=== PATIENT | female | born 1970 | race Hispanic/Latino ===

== ENCOUNTER 2018-03-06 18:25 | Inpatient (IN) | payer MEDICAID ==
[2018-03-06 18:25] VITALS: BMI 24.4
--- NOTE | 2018-03-06 19:36 | C.PDOC ---
History Of Present Illness 47 year old female presents to the ER for detox from benzos and opiates. Patient states she uses Xanax and snorts Heroin, last use was this morning. Patient denies any physical complaints at this time. Time Seen by Provider: 03/06/18 19:09 Chief Complaint (Nursing): Substance Abuse History Per: Patient History/Exam Limitations: no limitations Onset/Duration Of Symptoms: Persistent Modifying Factor(s): Other (Opiates, Benzos) Involuntary Hold By: None Recent travel outside of the [place]: No Past Medical History Reviewed: Historical Data, Nursing Documentation, Vital Signs Vital Signs: Last Vital Signs Temp 97.8 F 03/06/18 18:28 Pulse 96 H 03/06/18 18:28 Resp 16 03/06/18 18:28 BP 118/82 03/06/18 18:28 Pulse Ox 98 03/06/18 18:28 - Medical History PMH: No Chronic Diseases, Seizures - [facility] Procedures APPLICATION OF SPLINT (09/06/03) INJECT/INFUSE NEC (02/15/06) Family History: States: No Known Family Hx - Social History Hx Tobacco Use: Yes Hx Alcohol Use: No Hx Substance Use: Yes Review Of Systems Cardiovascular: Negative for: Chest Pain, Palpitations Respiratory: Negative for: Shortness of Breath Gastrointestinal: Negative for: Nausea, Vomiting, Abdominal Pain Neurological: Negative for: Headache, Dizziness Psych: Positive for: Other (benzo and heroin dependence) Physical Exam - Physical Exam Appears: Well, Non-toxic, No Acute Distress Skin: Normal Color, Warm, Dry Head: Atraumatic, Normacephalic Eye(s): bilateral: Normal Inspection Oral Mucosa: Moist Cardiovascular: Rhythm Regular Respiratory: Normal Breath Sounds, No Rales, No Rhonchi, No Wheezing Gastrointestinal/Abdominal: Normal Exam, Bowel Sounds, Soft, No Tenderness Neurological/Psych: Oriented x3 Gait: Steady ED Course And Treatment - Laboratory Results Result Diagrams: 03/06/18 20:09 03/06/18 20:09 O2 Sat by Pulse Oximetry: 98 (Room air) Pulse Ox Interpretation: Normal Progress Note: Blood work, UA, UDS, UPREG ordered and reviewed. 8:53pm- Patient medically cleared, pending crisis. 9:04pm- Patient accepted for detox admission by Dr. Cardoza. Disposition - Disposition Disposition: HOSPITALIZED Disposition Time: 21:04 Condition: STABLE - Clinical Impression Clinical Impression: Heroin dependence, Benzodiazepine dependence - Scribe Statement The provider has reviewed the documentation as recorded by the Scribsole Escobedo All medical record entries made by the Scribe were at my direction and personally dictated by me. I have reviewed the chart and agree that the record accurately reflects my personal performance of the history, physical exam, medical decision making, and the department course for this patient. I have also personally directed, reviewed, and agree with the discharge instructions and disposition. Decision To Admit - Pt Status Changed To: Hospital Disposition Of: Inpatient - Admit Certification Admit to Inpatient:: After my assessment, the patient will require hospitalization for at least two midnights. This is because of the severity of symptoms shown, intensity of services needed, and/or the medical risk in this patient being treated as an outpatient. - InPatient: Physician Admission Certification: I certify that this patient requires 2 or more midnights of care for the following reason:: see notes - . Bed Request Type: Detox Admitting Physician: Pan Cardoza Patient Diagnosis: Benzodiazepine dependence, Heroin dependence
[2018-03-06 20:17] LABS: BASO % 0.5 % (0.0-2.0); EOS # 0.1 K/uL (0.0-0.7); EOS % 1.4 % (0.0-4.0); HEMOGLOBIN 14.6 g/dL (11.0-16.0); LYMPH # 1.1 K/uL (1.0-4.3); LYMPH % 13.9 % (20.0-40.0); MEAN CELL VOLUME 82.6 fL (81.0-99.0); MEAN CORPUSCULAR HEMOGLOBIN 27.6 pg (27.0-31.0); MEAN CORPUSCULAR HGB CONC 33.4 g/dL (33.0-37.0); MONO # 0.3 K/uL (0.0-0.8); MONO % 3.1 % (0.0-10.0); NEUT # 6.6 K/uL (1.8-7.0); NEUT % 81.1 % (50.0-75.0); RBC 5.29 Mil/uL (3.80-5.20); RED CELL DISTRIBUTION WIDTH 14.8 % (11.5-14.5); WHITE BLOOD COUNT 8.1 K/uL (4.8-10.8)
[2018-03-06 20:21] LABS: HCG,QUALITATIVE URINE NEGATIVE (NEGATIVE)
[2018-03-06 20:24] LABS: ALB/GLOB RATIO 1.4 (1.0-2.1); ALBUMIN 4.4 g/dL (3.5-5.0); ALT/SGPT 13 U/L (9-52); AST/SGOT 19 U/L (14-36); BLOOD UREA NITROGEN 9 mg/dL (7-17); CALCIUM 9.1 mg/dl (8.6-10.4); GFR NON-AFRICAN AMERICAN > 60
[2018-03-06 20:28] LABS: SQUAMOUS EPITHIAL 3 /hpf (0-5); URINE BACTERIA RARE (<OCC); URINE BILIRUBIN NEGATIVE (NEGATIVE); URINE BLOOD NEGATIVE (NEGATIVE); URINE CLARITY Clear (Clear); URINE COLOR Yellow (YELLOW); URINE GLUCOSE (UA) NORMAL (Normal); URINE LEUKOCYTE ESTERASE NEG Leu/uL (Negative); URINE PROTEIN NEGATIVE (NEGATIVE)
[2018-03-06 20:37] LABS: BARBITURATES, UR NEGATIVE (NEGATIVE); PHENCYCLIDINE, UR NEGATIVE (NEGATIVE)
[2018-03-06 20:51] LABS: BENZODIAZEPINES, UR POSITIVE (NEGATIVE); OPIATES, UR POSITIVE (NEGATIVE)
--- NOTE | 2018-03-06 22:03 | PCM.BM ---
<Katharina Lundberg - Last Filed: 03/06/18 22:01> Treatment Plan Problems - Problems identified on initial assessmt Defensive Coping Date Initiated: 03/06/18 Time Initiated: 22:02 Assessment reference: NA Status: Active Hopelessness Date Initiated: 03/06/18 Time Initiated: 22:02 Assessment reference: NA Status: Active Knowledge Deficit: Substance Use Date Initiated: 03/06/18 Time Initiated: 22:02 Assessment reference: NA Status: Active Treatment assets and liabiliti Patient Assests: ADL independent, negotiates basic needs, cognitively intact Patient Liabilities: substance abuse (heroin) - Milieu Protocol Maintain good personal hygiene: daily Encourage regular showers, daily Remind pa tient to perform daily oral care, daily Assist patient to perform ADL's Conduct patient checks and document Observation sheet: Q15 minutes Maintain personal safety: every shift Educate patient to report safety concerns to staff, every shift Monitor environment for contraband/sharps Medication safety: Monitor for expected outcome, potential side effects: every shift, Assess barriers to learning: every shift, Assess readiness for medication education: every shift <Mer Dumont - Last Filed: 03/07/18 12:26> - Diagnosis (1) Opioid use disorder, severe, dependence Status: Acute Interventions: 03/07/18 12:26 * Assess 7x/week regarding severity of withdrawal * Educate regarding risks, benefits, side effects and alternatives of medications * Use Motivational Interviewing for abstinence * Use CBT for relapse prevention * Medication management for withdrawal symptoms * Encourage medication assisted treatment * <Marilee Muse - Last Filed: 03/07/18 14:48> Family Contact Family contact name: daughters Family contacted how many times per week?: 3 - Goals for Treatment Patient goals for treatment: Complete detox and transition to grief therapy. Discharge/Continuing Care - Education Needs Education Needs: Family Medication, Family Diagnosis/Disease Process, Family Coping Skills, Family Placement options, Family Community resources, Patient Medication, Patient Diagnosis/Disease Process, Patient Coping Skills, Patient Anger Management skills, Patient Placement options, Patient Community resources - Discharge Discharge Criteria: Ability to care for self, No longer exhibiting s/s of withdrawal, Reduction of target symptoms Discharge to:: Home, With Family - Treatment Team Participation Patient/Family/SO Statement: 03/07/18 14:48 "I need to go to grief therapy and I wanna take my 2 daughters too..." Discussed with Family/SO: No Was Patient/Family/SO present at Treatment Team Meeting: Yes
[2018-03-06] MEDS ORDERED: Magnesium Hydroxide Susp 30 ml UD PO PRN (22:59)
[2018-03-06] MEDS ORDERED: Aluminum Hydroxide/Magnesium Hydroxide Susp (30 mL) PO PRN (22:59)
--- NOTE | 2018-03-07 10:07 | PCM.PSYCH ---
Initial Psychiatric Evaluation - Initial Psychiatric Evaluation Type of Admission: Voluntary Legal Status: Capacity Chief Complaint (in patient's own words): "I need detox" History of Present Illness and Precipitating Events: 47 year old female who is , with 3 living children aged 16, 27, and 31 and one decreased child aged 22, currently unemployed, living with her 16 y/o and 27 y/o daughter presents to the hospital for heroin withdrawal. Pt reports that she started using heroin and benzos about 3 years ago, following the passing of her 22 year old daughter. Pt states since then her brother and stepson have also , which have added to her depression and exacerbated her drug abuse. Pt reports that her drug abuse has gotten worse since then and wants help. Pt has no previous hx with detox or rehab. Pt has seen a psychiatrist in the past for depression, but has not been admitted to an inpatient psych unit before. Pt states she first used heroin 3 years ago. She currently uses about 25 bags a day, with her last use being yesterday. Pt states she first used benzos 3 years ago. She currently uses 4 mg or more per day split between two doses. Pt admits to smoking a pack of cigarettes per day, for the past 25 years. Pt reports feeling anxious and depressed. Pt complains of headache, diffuse body aches, chills, sweats, nausea, and diarrhea. Pt scores a 17 on the COWS scale for opiate withdrawal. Pt denies suicidal or homicidal ideations, auditory or visual hallucinations, or paranoia at this time. Past Psych Hx: depression and generalized anxiety Fam Psych Hx: opioid use (mother and decreased daughter) PMH: Epilepsy - noncompliant with meds PSH: wrist sx in 2017 for a fall Meds: denies b/c she does not have insurance, but was on anti-seizure med in the past, and Zoloft and Celexa. Keppra, Depakote Dilantin and Lamictal in the past (not altogether) Current Medications: Active Medications Generic Name Dose Route Start Last Admin Trade Name Freq PRN Reason Stop Dose Admin Al Hydrox/Mg Hydrox/Simethicone 30 ml 03/06/18 22:59 Maalox 30 Ml PO TID PRN Indigestion / Heartburn Clonidine HCl 0.1 mg 03/06/18 23:04 03/07/18 03:54 Catapres PO 0.1 mg Q4H PRN Administration Symptoms of alcohol withdrawl Dicyclomine HCl 10 mg 03/06/18 22:59 03/07/18 03:59 Bentyl PO 10 mg Q6 PRN Administration Muscle spasm Gabapentin 300 mg 03/07/18 10:00 03/07/18 09:53 Neurontin PO 300 mg TID CRISTÓBAL Administration Hydroxyzine HCl 50 mg 03/06/18 23:02 Atarax PO QID PRN Anxiety Ibuprofen 600 mg 03/06/18 22:59 03/07/18 03:54 Motrin Tab PO 600 mg Q6 PRN Administration Pain, moderate (4-7) Loperamide HCl 2 mg 03/06/18 22:59 03/07/18 03:59 Imodium PO 2 mg Q8 PRN Administration Diarrhea Magnesium Hydroxide 30 ml 03/06/18 22:59 Milk Of Magnesia PO 03/09/18 10:01 BID PRN Constipation Nicotine 1 patch 03/07/18 10:00 03/07/18 09:52 Nicoderm Cq TD 1 patch DAILY CRISTÓBAL Administration Ondansetron HCl 4 mg 03/06/18 22:59 03/07/18 03:55 Zofran Tab PO 4 mg Q8 PRN Administration Nausea/Vomiting Trazodone HCl 100 mg 03/06/18 23:03 03/07/18 03:55 Desyrel PO 100 mg HS PRN Administration Sleep Past Psychiatric History - Past Psychiatric History Previous Treatment History: Intensive Outpatient Pertinent Medical Hx (Current Medical&Sleep Prob, Allergies): Allergies Allergy/AdvReac Type Severity Reaction Status Date / Time iv dye Allergy Uncoded 03/06/18 18:31 No Known Home Med 03/06/18 Mental Status Examination - Personal Presentation Personal Presentation: Looks stated age - Affect Affect: Constricted - Motor Activity Motor Activity: Calm - Reliability in Providing Information Reliability in Providing Information: Good - Speech Speech: Organized - Mood Mood: Depressed, Anxious - Formal Thought Process Formal Thought Process: No Impairment - Cognitive Functions Orientation: Person, Place, Situation, Time Sensorium: Alert Attention/Concentration: Attentive Estimate of Intelligence: Average Judgement: Intact, as evidence by: Insight regarding need for hospitalization Memory: Recent intact, as evidence by: Ability to recall events of the day, Remote intact, as evidenced by: Abilit to recall sig. 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 Attend groups and activities Supportive therapy and psychoeducation [place] for abstinence CBT for relapse prevention Encourage MAT Refer to IOP, and self-help groups; Pt specifically wants grief counseling, scheduled to meet Wed at 4:30. Teach healthy lifestyle methods, i.e. diet, exercise, meditation Smoking cessation with [place] Nicotine patch if needed Projected ELOS: 5 days Prognosis: good - Smoking Cessation Smoking Cessation Initiated: Yes
[2018-03-08] MEDS ORDERED: Apap-Butalbital-Caffeine 325-50-40mg Tab PO PRN (10:21)
--- NOTE | 2018-03-08 13:44 | PCM.PYCHPN ---
Psychiatric Progress Note - Psychiatric Progress Note Patient seen today, length of contact: 17 min Patient Chief Complaint: "I am a little better" Problems Identified/Issues Discussed: The pt is seen, chart reviewed, case is discussed with staff. The pt is compliant with medications and reports no side-effects. Symptoms are improving but needs more time to stabilize and to avoid relapse. She has lots of psych issues and ongoing withdrawal Pt attends groups and activities. Support given, psycho-education provided. After care discussed. Medication Change: Yes (detox changes daily) Medical Record Reviewed: Yes Mental Status Examination - Cognitive Function Orientation: Person, Place, Situation, Time Memory: Intact Attention: WNL Concentration: Poor Association: WNL Fund of Knowledge: WNL - Mood Mood: Depressed, Anxious - Affect Affect: Constricted - Speech Speech: Appropriate - Formal Thought Process Formal Thought Process: No Impairment - Suicidal Ideation Suicidal Ideation: No - Homicidal Ideation Homicidal Ideation: No Goal/Treatment Plan - Goal/Treatment Plan Need for Continued Stay: Discharge may exacerbated symptoms, Severe functional impairment Progress Toward Problem(s) and Goals/Treatment Plan: Taper with Methadone Start Keppra for seizure Gabapentin for augmentation As needed medications Maalox, Clonidine, Bentyl, Atarax, Imodium, Zofran, and Trazodone All risks, benefits and alternatives of the meds discussed, and the pt agreed and understood. Attend groups and activities Supportive therapy and psychoeducation [place] for abstinence CBT for relapse prevention Encourage MAT Refer to IOP, and self-help groups; Pt specifically wants grief counseling, scheduled to meet Wed at 4:30. Teach healthy lifestyle methods, i.e. diet, exercise, meditation Smoking cessation with [place] Nicotine patch if needed
--- NOTE | 2018-03-09 11:37 | PCM.PYCHPN ---
Psychiatric Progress Note - Psychiatric Progress Note Patient seen today, length of contact: 17 min Patient Chief Complaint: I am still withdrawing Problems Identified/Issues Discussed: Patient was seen and evaluated, chart reviewed and discussed with staff. Reports withdrawal symptoms including anxiety, headaches and sweating. But denies any feelings of hopelessness or helplessness. She denies any suicidal ideation or any homicidal ideation. She denies any auditory hallucinations or any paranoia. She is taking medication but denies any side effects. Supportive therapy was given Medication Change: Yes (detox changes daily) Medical Record Reviewed: Yes Mental Status Examination - Cognitive Function Orientation: Person, Place, Situation, Time Memory: Intact Attention: WNL Concentration: Poor Association: WNL Fund of Knowledge: WNL - Mood Mood: Depressed, Anxious - Affect Affect: Constricted - Speech Speech: Appropriate - Formal Thought Process Formal Thought Process: No Impairment - Suicidal Ideation Suicidal Ideation: No - Homicidal Ideation Homicidal Ideation: No Goal/Treatment Plan - Goal/Treatment Plan Need for Continued Stay: Discharge may exacerbated symptoms, Severe functional impairment Progress Toward Problem(s) and Goals/Treatment Plan: OPioid withdrawal Opioid use d/o - severe 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 Attend groups and activities Supportive therapy and psychoeducation [place] for abstinence CBT for relapse prevention Encourage MAT Refer to IOP, and self-help groups; Pt specifically wants grief counseling, scheduled to meet Wed at 4:30. Teach healthy lifestyle methods, i.e. diet, exercise, meditation Smoking cessation with [place] Nicotine patch if needed
--- NOTE | 2018-03-10 16:18 | PCM.PYCHPN ---
Psychiatric Progress Note - Psychiatric Progress Note Patient seen today, length of contact: 15 minutes Patient Chief Complaint: My sleep is not good but otherwise I am feeling better. Problems Identified/Issues Discussed: Patient seen, chart reviewed, case discussed with the staff. Issues related to illness and treatment were discussed with the patient and staff. Reported compliant with treatment with no adverse effects. Tolerating treatment very well. Reported her sleep is not good. Patient reported feeling better with the treatment. Mood reported as okay. Affect appropriate. Patient was awake, alert and oriented x3. Calm and cooperative. Aftercare discussed with the patient. Patient denied any delusions, no auditory or visual hallucinations, no suicidal ideations or homicidal ideations at the time of evaluation. Medical Problems: Seizure disorder Diagnostic Results: Reviewed DSM 5 Symptoms Update: Some improvement with treatment. Medication Change: No (detox changes daily) Medical Record Reviewed: Yes Mental Status Examination - Cognitive Function Orientation: Person, Place, Situation, Time Memory: Intact Attention: WNL Concentration: WNL Association: WNL Fund of Knowledge: [facility] Decription of patient's judgement and insights: Fair - Mood Mood: Depressed (Less than before) - Affect Affect: Other (Appropriate) - Speech Speech: Appropriate - Formal Thought Process Formal Thought Process: No Impairment Psychotic Thoughts and Behaviors: None - Suicidal Ideation Suicidal Ideation: No - Homicidal Ideation Homicidal Ideation: No Goal/Treatment Plan - Goal/Treatment Plan Need for Continued Stay: Remain at risks for inpatient hospitalization, Discharge may exacerbated symptoms, Severe functional impairment Progress Toward Problem(s) and Goals/Treatment Plan: Some improvement with treatment. Patient education. Supportive therapy. CBT for relapse prevention. [place] for abstinence. Continue treatment as before. Patient wants to go to [facility] in [place] for follow-up care after discharge from the hospital. Estimated Date of D/C: 03/11/18 - Smoking Cessation Smoking Cessation Initiated: Yes
[2018-03-11 11:21] VITALS: BP 114/63; PULSE 86; RESP 16; TEMP 97.6; O2SAT 98
== END 2018-03-11 10:40 | disposition home or self-care (01) ==
LOC: C.ER 18:25 → C.7D 21:04
DX: F11.23 Opioid dependence with withdrawal (principal); F13.20 Sedative, hypnotic or anxiolytic dependence, uncomplicated; F43.10 Post-traumatic stress disorder, unspecified; F32.9 Major depressive disorder, single episode, unspecified; G40.909 Epilepsy, unspecified, not intractable, without status epilepticus; F17.210 Nicotine dependence, cigarettes, uncomplicated; F41.1 Generalized anxiety disorder; Z91.14 Patient's other noncompliance with medication regimen; Z81.8 Family history of other mental and behavioral disorders